=== PATIENT | male | born 1985 | race Caucasian/White ===

== ENCOUNTER 2024-02-25 09:17 | Outpatient (CLI) | payer OTHER, SELFPAY | END 2024-02-25 09:18 | disposition home or self-care (01) | LOC: NFLDREF 02-29 16:48 | PROVIDERS: PCP Family Medicine; Referring Provider Family Medicine; Visit Provider Family Medicine | DX: Z13.1 Encounter for screening for diabetes mellitus (principal); Z13.220 Encounter for screening for lipoid disorders | CPT/HCPCS: 80061; 82947 ==